=== PATIENT | male | born 1985 | race Hispanic/Latino ===

== ENCOUNTER 2021-08-19 20:41 | Emergency (ER) | payer OTHER, SELFPAY ==
[2021-08-19 20:53] VITALS: BP 134/66; PULSE 66; RESP 18; TEMP 36.2; O2SAT 100
--- NOTE | 2021-08-19 22:35 | ED.URI ---
HPI - URI/Sore Throat General Chief Complaint: Upper Respiratory Infection Stated Complaint: fever, sore throat Time Seen by Provider: 08/19/21 21:37 Source: patient Mode of arrival: ambulatory Limitations: language barrier (used video sign language interpreter) History of Present Illness HPI Narrative: This is a 36 year old male who presents for evaluation of possible COVID. Patient states 2 days ago he was exposed to 2 people that were found to be positive for covid. He develop headache and body aches on Wednesday night. He denies sore throat, loss of taste of smell, chest pain, shortness of breath, nausea or vomiting. He wants to be tested for covid. Related Data Allergies Allergy/AdvReac Type Severity Reaction Status Date / Time No Known Allergies Allergy Verified 08/19/21 20:57 Review of Systems Review of Systems: All systems reviewed & are unremarkable except as noted in HPI and below PMFSH Past Medical History Medical History (Updated 08/19/21 @ 22:49 by Ely Mcdonough MD) Patient denies medical problems Surgical History Surgical History (Updated 08/19/21 @ 22:39 by Ely Mcdonough MD) No pertinent past surgical history Social History Social History (Updated 08/19/21 @ 22:39 by Ely Mcdonough MD) Smoking status: Never smoker Exam Const: General: healthy appearing, no acute distress and alert Orientation/consciousness: patient oriented x3 HENMT: Head: normocephalic and atraumatic Ears: TM's normal bilaterally General nose exam: Normal external nose present and Normal nares present Face and sinus: normal facial exam, sinuses nontender and face symmetric Mouth: Yes Normal oral and palatal mucosa present, Yes lip normal, Yes tongue normal, Yes oropharynx normal and Yes moist mucous membranes Throat: posterior oropharynx normal, tonsils normal and uvula midline Eyes: EOM: EOMs intact bilaterally Chest: Chest palpation & inspection: normal inspection of the chest Resp: Effort & Inspection: normal respiratory effort and no retractions Auscultation: clear to auscultation bilaterally Cardio: Rate: regular rate Rhythm: regular rhythm Heart sounds: no murmurs GI: GI Palp: Yes Soft to palpation, No Tenderness to palpation present (GI) and No Guarding due to palpation present (GI) Auscultation: normal bowel sounds Back/Spine/Pelvis: Back: no CVA tenderness Skin: General skin exam: normal color Rashes: no rashes Neuro: General: patient oriented x3 and moves all extremities Extrem: General: normal to inspection Psych: Mental Status: mental status grossly normal Affect: normal affect Course Reevaluation(s) Reevaluation #1: I Discussed with patient discharge plan and treatment. I also discussed he will need to quarantine Date: 08/19/21 Time: 22:47 Vital Signs Vital signs: Vital Signs Temperature 97.1 F L 08/19/21 20:53 Pulse Rate 66 08/19/21 20:53 Respiratory Rate 18 08/19/21 20:53 Blood Pressure 134/66 08/19/21 20:53 Pulse Oximetry 100 08/19/21 20:53 Temperature 97.1 F L 08/19/21 20:53 Pulse Rate 66 08/19/21 20:53 Respiratory Rate 18 08/19/21 20:53 Blood Pressure 134/66 08/19/21 20:53 Pulse Oximetry 100 08/19/21 20:53 MDM - URI/Sore Throat Lab Data Labs: Lab Results 08/19/21 Range/Units 23:03 SARS-CoV-2 RNA (RT-PCR) Pending Influenza A Screen Negative Reference Range: Negative Influenza B Screen Negative Reference Range: Negative Discharge Plan Discharge Clinical Impression: Suspected 2019-nCoV infection Patient Disposition: Home, Self-Care Condition: Stable Instructions: Viral Syndrome (ED), COVID-19 (Coronavirus Disease 2019) (ED) Additional Instructions: Today you were tested for covid. Your results will return in 1-2 days. Patient Language: Hungarian Follow-up/[facility]erra
[2021-08-20 21:18] LABS: SARS-CoV-2 RNA PCR Negative
== END 2021-08-19 23:12 | disposition home or self-care (01) ==
PROVIDERS: Emergency Provider General Practice
DX: R51.9 Headache, unspecified (principal); Z20.822 Contact with and (suspected) exposure to COVID-19
CPT/HCPCS: 87804; 99283; C9803; U0003; U0005